=== PATIENT | male | born 1985 | race Caucasian/White ===

== ENCOUNTER 2021-06-25 09:01 | Emergency (ER) | payer OTHER ==
[~2021-06-25] VITALS: Ht 195.6 cm; Wt 113.4 kg
[2021-06-25] MEDS ORDERED: NEXIUM40 MG PO (10:41)
[2021-06-25 10:59] VITALS: BP 126/72
== END 2021-06-25 10:59 | disposition home or self-care (01) ==
LOC: M.ERS 09:01
DX: R10.13 Epigastric pain (principal); K29.70 Gastritis, unspecified, without bleeding